=== PATIENT | female | born 1970 | race Hispanic/Latino ===

== ENCOUNTER 2023-10-16 11:53 | Day surgery (SDC) | payer OTHER ==
[~2023-10-16] VITALS: Ht 152.4 cm; Wt 81.3 kg
[~2023-10-16 11:53] MED LIST: BUPROPION HCL200 MG PO; BUSPIRONE HCL10 MG PO; IBLOOD GLUCOSE TEST STRIP 1 EA TEST VI PRN; LACTATED RINGER'S 1,000 ML IV SCH; LATUDA60 MG PO; LIDOCAINE HCL 1% 5 ML SDV INJ ONE; MIDAZOLAM HCL 5 MG/5 ML VIAL IV PRN; fentaNYL citrate 100 MCG/2 ML VIAL IV PRN
[2023-10-16 12:19] VITALS: BP 133/88
[2023-10-16] MEDS ORDERED: fentaNYL citrate 100 MCG/2 ML VIAL ONE (12:46)
[2023-10-16] MEDS ORDERED: MIDAZOLAM HCL 5 MG/5 ML VIAL ONE (12:46)
[2023-10-16] MEDS ORDERED: MIDAZOLAM HCL 2 MG/2 ML VIAL ONE ×2 (13:35→13:49)
--- NOTE | 2023-10-16 14:20 | NUR ---
10/16/23 1420 Karine Beck 1410 PT ARRIVES TO THE PACU. PT RESPIRATIONS EVEN AND UNLABORED. PT IS AWAKE AND IS ABLE TO STATE "NO PAIN". BP HIGH AND PT ROLLED TO BACK AND CUFF ADJUSTED AND BP NORMAL. 1412 PT IS ABLE TO PASS GAS AND ENCOURAGED TO CONTINUE PASSING GAS. PT ALSO ENCOURAGED TO BREATHE DEEPLY DUE TO INCREASED CO2.
[2023-10-16 15:07] VITALS: BP 125/91
--- NOTE | 2023-10-17 11:19 | OR ---
[facility] [address], [place] [address] Signed DATE OF OPERATION: 10/16/2023 SURGEON: Maria Luisa Mack MD PREOPERATIVE DIAGNOSIS: Positive Cologuard test January 2023. POSTOPERATIVE DIAGNOSIS: Polyps x3 (cecum, sigmoid and rectum). PROCEDURE: Total colonoscopy to cecum with cold morcellation polypectomy x3. ANESTHESIA: Intravenous sedation; fentanyl 200 mcg and Versed 14 mg. INDICATION: This 53-year-old woman is a patient of Dr. Stone. She underwent Cologuard testing in January of 2023, which was positive. She does have diarrhea from time to time, but no associated rectal bleeding. She has no family history of colon cancer. She is admitted at this time to undergo colonoscopy on the basis of her positive Cologuard test. She understands the risk of bleeding, infection, and perforation related to colonoscopy and wished to proceed. FINDINGS: The prep was good. Complete colonoscopy was undertaken of the cecum. There was a somewhat linear polyp of the proximal ascending colon cecal junction, which was excised with cold morcellation technique. Another small polyp was noted at the sigmoid and another at the rectum. All were excised completely. DESCRIPTION OF PROCEDURE: The patient was brought to the endoscopy suite and placed in the lateral decubitus position, given intravenous sedation to the point of slurred speech and nystagmus. Digital rectal examination was normal. An Olympus video colonoscope was passed in the rectum and manipulated throughout the colon ultimately intubating the cecum itself. Noted in the cecal ascending junction was a rather subtle but real adenomatous appearing polyp. This was cold morcellation technique to completely ablate the polyp. The scope was then withdrawn and examination throughout showed no sign of abnormality until the sigmoid where a small Electronically Signed By: MARIA LUISA MACK MD 10/17/23 1119 PATIENT NAME: ALLYN TRINIDAD OPERATIVE REPORT DATE OF : 66 REPORT #: [id number] PHYSICIAN: MARIA LUISA MACK MD PCP: OLAYINKA STONE MD REPORT IS CONFIDENTIAL AND NOT TO BE RELEASED WITHOUT AUTHORIZATION [facility] [address], [place] [address] Signed polyp was noted, this might have been hyperplastic, it was excised nevertheless of course. Further withdrawal showed a very small polyp of the rectum, which was excised with cold morcellation technique as well. The scope was removed and the patient was taken to recovery room in good condition. CONCLUDING DIAGNOSIS: Polyps x3. PLAN: Recommend repeat colonoscopy in three years. Note, she will no longer be considered appropriate candidate for Cologuard testing since she now has a history of polyps herself. MD BELINDA Lundberg/SMITHL /[id number] cc: Dr. Stone Copies: ~ Electronically Signed By: MARIA LUISA MACK MD 10/17/23 1119 PATIENT NAME: ALLYN TRINIDAD OPERATIVE REPORT DATE OF : 66 REPORT #: [id number] PHYSICIAN: MARIA LUISA MACK MD PCP: OLAYINKA STONE MD REPORT IS CONFIDENTIAL AND NOT TO BE RELEASED WITHOUT AUTHORIZATION
--- NOTE | 2023-10-23 17:08 | PATH ---
[facility] [address], [place] [address] Signed SPECIMEN(S): A CECUM COLON POLYPS SPECIMEN(S): B SIGMOID POLYP SPECIMEN(S): C RECTAL POLYP SPECIMEN SOURCE: A. CECUM COLON POLYPS B. SIGMOID POLYP C. RECTAL POLYP CLINICAL HISTORY: Positive Cologuard test (R19.5), Diarrhea (R19.7), Colon polyps (K63.5), Diverticulosis (K57.90) FINAL PATHOLOGIC DIAGNOSIS: A. Cecum colon polyps: - Serrated polyp/adenoma (two fragments). B. Sigmoid polyp: - Hyperplastic polyp (two fragments). C. Rectal polyp: - Hyperplastic polyp (three fragments). JVR:clv MICROSCOPIC EXAMINATION: Histologic sections of all submitted blocks are examined by light microscopy. These findings, together with the gross examination, support the pathologic diagnosis. GROSS DESCRIPTION: A. The specimen, labeled and designated "Vivi, 1" and designated on the requisition "polypectomy, cecum," is received in formalin and consists of multiple underwood soft tissue fragments, 0.2-0.4 cm. Entirely submitted in (A1). B. The specimen, labeled and designated "Vivi, 2" and designated on the requisition "sigmoid polypectomy," is received in formalin and consists of three underwood soft tissue fragments, ranging from 0.1-0.2 cm. Entirely submitted in (B1). C. The specimen, labeled and designated "Vivi, 3" and designated on the requisition "rectum polypectomy," is received in formalin and consists of two underwood soft tissue fragments, both measuring 0.2 cm in greatest dimension. Entirely submitted in (C1). AC (under the direct supervision of a pathologist) PATIENT NAME: ALLYN TRINIDAD PATHOLOGY DATE OF : 66 REPORT #: [id number] PHYSICIAN: [facility] PCP: OLAYINKA STONE MD REPORT IS CONFIDENTIAL AND NOT TO BE RELEASED WITHOUT AUTHORIZATION [facility] [address], [place] [address] Signed The Gross Description was prepared using a voice recognition system. The report was reviewed for accuracy; however, sound-alike word errors, addition and/or deletions may occur. If there is any question about this report, please contact Client Services. ADDITIONAL NOTES: Immunohistochemical and/or in situ hybridization studies if performed in this case included appropriate positive controls that reacted as expected. This test was developed and its performance characteristics determined by [facility]. It has not been cleared or approved by the U.S. Food and Drug Administration. The FDA has determined that such clearance or approval is not necessary. This test is used for clinical purposes. It should not be regarded as investigational or for research. [facility] is certified under the Clinical Laboratory Improvement Amendments of 1988 (CLIA) as qualified to perform high complexity clinical laboratory testing. PERFORMING LABORATORY: Technical component was performed by [facility], [address] [place] [id number] (CLIA# [id number]). Professional interpretation was performed by [facility], [address] [place] [id number] (CLIA#: [id number]). Diagnostician: Amilcar Carbajal MD Pathologist Electronically Signed 10/23/2023 Copies: ~ PATIENT NAME: VIVIALLYN PATHOLOGY DATE OF : 66 REPORT #: [id number] PHYSICIAN: [facility] PCP: OLAYINKA STONE MD REPORT IS CONFIDENTIAL AND NOT TO BE RELEASED WITHOUT AUTHORIZATION
== END 2023-10-16 15:10 | disposition home or self-care (01) ==
LOC: OPS 11:53 → DS 12:03 → OPS 13:00
PROVIDERS: ATTEND Surgery
PROC: 0DBN8ZX Excision of Sigmoid Colon, Via Natural or Artificial Opening Endoscopic, Diagnostic (ICD-10-PCS; 2023-10-16)
PROC: 0DBP8ZX Excision of Rectum, Via Natural or Artificial Opening Endoscopic, Diagnostic (ICD-10-PCS; principal; 2023-10-16 13:00)
DX: Z12.11 Encounter for screening for malignant neoplasm of colon (principal); D12.0 Benign neoplasm of cecum; K63.5 Polyp of colon; K62.1 Rectal polyp; E66.9 Obesity, unspecified; K21.9 Gastro-esophageal reflux disease without esophagitis; Z90.711 Acquired absence of uterus with remaining cervical stump; Z88.0 Allergy status to penicillin
CPT/HCPCS: 99153; G0500; J2250; J3010